=== PATIENT | male | born 1980 | race Caucasian/White ===

== ENCOUNTER 2024-02-02 17:36 | Emergency (ER) | payer SELFPAY ==
[2024-02-02] MEDS: Fluorescein 1 MG Ophth Strip EYERT ONE (18:08)
[2024-02-02] MEDS: Proparacaine 0.5% Ophth Soln 15 ML Bottle EYERT ONE (18:08)
[2024-02-02] MEDS: Ciprofloxacin 0.3% Ophth Soln 5 ML Bottle EYERT ONE (18:29)
== END 2024-02-02 18:35 | disposition home or self-care (01) ==
LOC: JD.ED 17:36
DX: S05.01XA Injury of conjunctiva and corneal abrasion without foreign body, right eye, initial encounter (principal); F17.210 Nicotine dependence, cigarettes, uncomplicated; Z88.0 Allergy status to penicillin; Z79.899 Other long term (current) drug therapy; W20.8XXA Other cause of strike by thrown, projected or falling object, initial encounter
CPT/HCPCS: 99283; A9270; J3490

== ENCOUNTER 2024-02-02 21:26 | Emergency (ER) | payer SELFPAY ==
[2024-02-02] MEDS ORDERED: Proparacaine 0.5% Ophth Soln 15 ML Bottle EYERT ONE (21:56)
[2024-02-02] MEDS ORDERED: Ketorolac 0.5% Ophth Soln 5 ML Bottle EYERT ONE (21:59)
[2024-02-03] MEDS ORDERED: Ketorolac 0.5% Ophth Soln 5 ML Bottle EYERT SCH (09:00)
== END 2024-02-02 22:04 | disposition left against medical advice (07) ==
LOC: JD.ED 21:26
DX: Z53.21 Procedure and treatment not carried out due to patient leaving prior to being seen by health care provider (principal)
CPT/HCPCS: J3490